=== PATIENT | female | born 1970 ===

== ENCOUNTER 2019-05-20 09:48 | Emergency (ER) | payer SELFPAY ==
[2019-05-20 11:39] VITALS: BP 115/51
--- NOTE | 2019-05-20 11:43 | UC ---
Back Pain HPI - HPI Summary HPI Summary: 48 yo female presents with back pain. She tells me that 3 days ago she bent down reaching for something in the bottom of a closet and felt a pull in her right lower back/buttocks. Since that time has had pain to the area that radiates into her buttock and right hip. Pain with lifting her leg and with bending. Has been taking ibuprofen with little relief. Denies abdominal pain, n/ v/d/c, dysuria, numbness, tingling, saddle anesthesia, or loss of bowel/bladder control. - History of Current Complaint Chief Complaint: UCBackPain Stated Complaint: BACK PAIN Time Seen by Provider: 05/20/19 11:43 Hx Obtained From: Patient Hx Last Menstrual Period: 09/07/15 Onset/Duration: Sudden Onset Timing: Constant Severity Initially: Moderate Severity Currently: Severe Pain Intensity: 10 Pain Scale Used: 0-10 Numeric - Allergies/Home Medications Allergies/Adverse Reactions: Allergies Allergy/AdvReac Type Severity Reaction Status Date / Time Penicillins Allergy Unknown Verified 05/20/19 11:39 Reaction Details PMH/Surg Hx/FS Hx/Imm Hx - Additional Past Medical History Additional PMH: None - Surgical History Surgical History: Yes Surgery Procedure, Year, and Place: tongue reattachment as a child. - Family History Known Family History: Positive: None - Social History Lives: With Family Alcohol Use: Rare Substance Use Type: None Smoking Status (MU): Heavy Every Day Tobacco Smoker Type: Cigarettes Amount Used/How Often: 1 PPD Length of Time of Smoking/Using Tobacco: 25 years Household Exposure Type: Cigarettes Review of Systems All Other Systems Reviewed And Are Negative: No Constitutional: Positive: Negative Skin: Positive: Negative Respiratory: Positive: Negative Cardiovascular: Positive: Negative Gastrointestinal: Positive: Negative Genitourinary: Positive: Negative Musculoskeletal: Positive: Other: - LBP Neurological: Positive: Negative Psychological: Positive: Negative Physical Exam - Summary Physical Exam Summary: GENERAL: NAD. WDWN. No pain distress. SKIN: No rashes, sores, lesions, or open wounds. NECK: Supple. FROM. Nontender. No lymphadenopathy. CHEST: CTAB. No r/r/w. No accessory muscle use. Breathing comfortably and in no distress. CV: RRR. Pulses intact. Cap refill <2seconds MSK: TTP over RIGHT SI. Pain with flexion and extension of spine. Positive SLR on RIGHT for SI pain. Strength 5/5 B/L LEs including dorsiflexion and plantar flexion. FROM B/L LEs. No edema. NEURO: Alert. Sensations intact B/L LEs L3-S1. Reflexes intact PSYCH: Age appropriate behavior. Triage Information Reviewed: Yes Vital Signs: Initial Vital Signs Temp 99.1 F 05/20/19 11:36 Pulse 83 05/20/19 11:36 Resp 18 05/20/19 11:36 BP 115/51 05/20/19 11:36 Pulse Ox 100 05/20/19 11:36 Vital Signs Reviewed: Yes Back Pain Course/Dx - Course Course Of Treatment: Suspect sciatica. In the clinic she was given toradol IM for her discomfort. Will rx for naproxen, medrol dose afua, and naproxen. Advised to rest, apply heat , and practice gentle stretching. - Differential Dx/Diagnosis Provider Diagnosis: Sciatica Discharge ED - Sign-Out/Discharge Documenting (check all that apply): Patient Departure All imaging exams completed and their final reports reviewed: No Studies - Discharge Plan Condition: Stable Disposition: HOME Prescriptions: Cyclobenzaprine TAB* [Flexeril 10 MG TAB*] 10 mg PO TID PRN #21 tab PRN Reason: Pain - Mild methylPREDNISolone [Medrol Dosepak 4 MG*] 0 mg PO .SEE AFUA INSTRUCTION #1 packet Naproxen [Naproxen 500 mg tab] 500 mg PO BID PRN #30 tablet PRN Reason: Pain - Mild Patient Education Materials: Sciatica (ED), Lower Back Exercises (ED) Referrals: No Primary Care Phys,NOPCP [Primary Care Provider] - Additional Instructions: If you develop a fever, shortness of breath, chest pain, new or worsening symptoms - please call your PCP or go to the ED immediately. Rest and apply heat to your back/hip to reduce inflammation Take medications as prescribed Do not take ibuprofen with the naproxen as these medications are related and may interact - Billing Disposition and Condition Condition: STABLE Disposition: Home
[2019-05-20] MEDS ORDERED: Ketorolac INJ* 30 MG/ML 1 ML VIAL IM ONE (11:47)
[2019-05-20] MEDS ORDERED: Cyclobenzaprine TAB* 10 MG PO ONE (11:47)
== END 2019-05-20 12:04 | disposition home or self-care (01) ==
LOC: UCEAST 09:48
DX: M54.31 Sciatica, right side (principal); F17.210 Nicotine dependence, cigarettes, uncomplicated; Z88.0 Allergy status to penicillin
CPT/HCPCS: 99202; A9270-GY; G0463; J1885

== ENCOUNTER 2019-05-28 07:11 | Emergency (ER) | payer SELFPAY ==
[2019-05-28 07:27] VITALS: BP 93/47
[2019-05-28] MEDS ORDERED: Ketorolac INJ* 30 MG/ML 1 ML VIAL IV ONE (07:36)
--- NOTE | 2019-05-28 07:51 | UC ---
Back Pain HPI - HPI Summary HPI Summary: back pain x 10 days pain is at right lower back , radiating to her right thigh pain is 10 out of 10 , not better with current pain meds pain is worse with any movements, better with heat no fever, no chills, no urinary sx, no known injury pt. was seen 8 days ago for the same pain was placed on steroids, Naproxen and Flexeril , was improving , but the pain returned yesterday - History of Current Complaint Chief Complaint: UCBackPain Stated Complaint: BACK PAIN Time Seen by Provider: 05/28/19 07:13 Hx Obtained From: Patient Hx Last Menstrual Period: 09/07/15 ?: No Onset/Duration: Gradual Onset, Lasting Days - 10, Still Present Timing: Constant Severity Initially: Severe Severity Currently: Severe Pain Intensity: 10 Back Pain: Is Discrete @ - right lower back Character: Aching Aggravating Factor(s): Movement, Lifting, Bending, Walking, Cough Alleviating Factor(s): Heat Associated Signs And Symptoms: Positive: Weakness. Negative: Swelling, Redness , Bruising, Fever, Numbness, Bladder Incontinence, Bowel Incontinence - Allergies/Home Medications Allergies/Adverse Reactions: Allergies Allergy/AdvReac Type Severity Reaction Status Date / Time Penicillins Allergy Unknown Verified 05/28/19 07:42 Reaction Details PMH/Surg Hx/FS Hx/Imm Hx Previously Healthy: Yes - Surgical History Surgical History: Yes Surgery Procedure, Year, and Place: tongue reattachment as a child. - Family History Known Family History: Positive: None Negative: Diabetes - Social History Alcohol Use: Rare Substance Use Type: None Smoking Status (MU): Heavy Every Day Tobacco Smoker Type: Cigarettes Amount Used/How Often: 1 PPD Length of Time of Smoking/Using Tobacco: 25 years Household Exposure Type: Cigarettes Review of Systems All Other Systems Reviewed And Are Negative: Yes Constitutional: Positive: Negative Skin: Positive: Negative Eyes: Positive: Negative Is Patient Immunocompromised?: No Physical Exam Triage Information Reviewed: Yes Appearance: Well-Nourished, Pain Distress Vital Signs: Initial Vital Signs Temp 97.1 F 05/28/19 07:18 Pulse 67 05/28/19 07:18 Resp 18 05/28/19 07:18 BP 93/47 05/28/19 07:18 Pulse Ox 100 05/28/19 07:18 Vital Signs Reviewed: Yes Eye Exam: Normal Eyes: Positive: Conjunctiva Clear ENT: Positive: Normal ENT inspection, Hearing grossly normal, Pharynx normal Neck: Positive: Supple, Nontender, No Lymphadenopathy Respiratory: Positive: Chest non-tender, Lungs clear, Normal breath sounds Cardiovascular: Positive: RRR, No Murmur, Pulses Normal Abdominal Exam: Normal Abdomen Description: Positive: Nontender Bowel Sounds: Positive: Present Musculoskeletal: Positive: Other: - right lower back : + tenderness, no muscle spasm, limited ROM on flexion and extension DTR + 2 b/l lower ext Back Pain Course/Dx - Differential Dx/Diagnosis Provider Diagnosis: Sciatica Discharge ED - Sign-Out/Discharge Documenting (check all that apply): Patient Departure All imaging exams completed and their final reports reviewed: No Studies - Discharge Plan Condition: Stable Disposition: HOME Prescriptions: Cyclobenzaprine TAB* [Flexeril 10 MG TAB*] 10 mg PO TID PRN #21 tab PRN Reason: Pain - Moderate Patient Education Materials: Sciatica (ED) Referrals: No Primary Care Phys,NOPCP [Primary Care Provider] - 7 Days - Billing Disposition and Condition Condition: STABLE Disposition: Home
== END 2019-05-28 08:20 | disposition home or self-care (01) ==
LOC: UCEAST 07:11
DX: M54.31 Sciatica, right side (principal); F17.210 Nicotine dependence, cigarettes, uncomplicated; Z88.0 Allergy status to penicillin
CPT/HCPCS: 96372; 99212; G0463; J1885